=== PATIENT | female | born 1940 | race Caucasian/White ===

== ENCOUNTER → 2017-10-25 14:09 | Outpatient (POV) | payer MEDICARE, SELFPAY | PROVIDERS: Visit Provider Family Medicine | DX: Z00.00 Encounter for general adult medical examination without abnormal findings (principal) ==

== ENCOUNTER → 2021-12-06 13:17 | Outpatient (CLI) | payer MEDICARE, SELFPAY ==
--- NOTE | 2021-12-06 13:24 | XR_ITS ---
FINAL REPORT CLINICAL HISTORY: LT KNEE PAIN, NKI FINDINGS: LEFT KNEE: Three views of the left knee were obtained. There is no acute fracture or dislocation. Visualized joint spaces are normally aligned. There is no joint effusion. Soft tissues are unremarkable. IMPRESSION: No acute bony abnormality. Reviewed, Interpreted and Dictated by Roshan Abebe III, MD Transcribed by Kacey Garcia Authenticated by Roshan Abebe III, MD on 12/06/2021 03:50:51 PM [facility]
--- NOTE | 2021-12-06 13:24 | XR_ITS ---
FINAL REPORT CLINICAL HISTORY: LT HIP PAIN, NKI FINDINGS: LEFT HIP: Two views of the left hip and an AP view of the pelvis demonstrate no acute fracture or dislocation. There is mild degenerative change. No soft tissue abnormality is seen. IMPRESSION: Mild degenerative change. No acute bony abnormality. Reviewed, Interpreted and Dictated by Roshan Abebe III, MD Transcribed by Kacey Garcia Authenticated by Roshan Abebe III, MD on 12/06/2021 03:51:04 PM [facility]
--- NOTE | 2021-12-06 13:24 | XR_ITS ---
FINAL REPORT CLINICAL HISTORY: LOW BACK PAIN THAT RADIATES INTO LT LEG NKI FINDINGS: 5 views of the lumbar spine were obtained. There is no evidence of fracture or dislocation. The vertebral alignment is normal. There is [id number] degenerative change. There is mild anterolisthesis at L4-5. There is mild facet arthropathy in the lower lumbar spine. There are moderate vascular calcifications. IMPRESSION: No acute bony abnormality. Reviewed, Interpreted and Dictated by Roshan Abebe III, MD Transcribed by Kacey Garcia Authenticated by Roshan Abebe III, MD on 12/06/2021 03:50:55 PM [facility]
== END ==
PROVIDERS: PCP Family Medicine; Visit Provider Family Medicine
DX: M54.42 Lumbago with sciatica, left side (principal); M25.552 Pain in left hip; M25.562 Pain in left knee
CPT/HCPCS: 72110; 73502; 73562

== ENCOUNTER → 2022-05-21 10:47 | Outpatient (CLI) | payer MEDICARE, SELFPAY | PROVIDERS: Visit Provider Ophthalmology | DX: Z01.812 Encounter for preprocedural laboratory examination (principal); Z20.822 Contact with and (suspected) exposure to COVID-19 | CPT/HCPCS: C9803; U0003; U0005 ==

== ENCOUNTER → 2022-06-25 08:57 | Outpatient (CLI) | payer MEDICARE, SELFPAY | PROVIDERS: PCP Nurse Practitioner Family; Visit Provider Ophthalmology | DX: Z01.812 Encounter for preprocedural laboratory examination (principal); Z20.822 Contact with and (suspected) exposure to COVID-19; H25.011 Cortical age-related cataract, right eye | CPT/HCPCS: C9803; U0003; U0005 ==

== ENCOUNTER 2022-06-28 07:29 | Day surgery (SDC) | payer MEDICARE, SELFPAY ==
[2022-05-18 10:36] VITALS: BMI 23.6
[2022-06-23 10:38] VITALS: BMI 22.3
[2022-06-28 08:27] VITALS: BP 161/83; PULSE 81; RESP 18; TEMP 36.4; O2SAT 97
[2022-06-28 09:28] VITALS: BP 160/70; PULSE 77; RESP 16; O2SAT 100
[2022-06-28 09:33] VITALS: BP 136/73; PULSE 73; RESP 16; O2SAT 99
[2022-06-28 09:38] VITALS: BP 143/74; PULSE 66; RESP 16; O2SAT 100
[2022-06-28 09:43] VITALS: BP 149/79; PULSE 66; RESP 16; O2SAT 100
[2022-06-28 09:46] VITALS: BP 124/57; PULSE 73; RESP 16; TEMP 36.4; O2SAT 96
== END 2022-06-28 09:53 | disposition home or self-care (01) ==
LOC: OR 07:31
PROVIDERS: PCP Nurse Practitioner Family; Visit Provider Ophthalmology
DX: H26.9 Unspecified cataract (principal)
CPT/HCPCS: 66984; V2632

== ENCOUNTER → 2022-07-09 10:18 | Outpatient (CLI) | payer MEDICARE, SELFPAY | PROVIDERS: PCP Nurse Practitioner Family; Visit Provider Ophthalmology | DX: Z01.812 Encounter for preprocedural laboratory examination (principal); Z20.822 Contact with and (suspected) exposure to COVID-19 | CPT/HCPCS: C9803; U0003; U0005 ==

== ENCOUNTER 2022-07-12 07:47 | Day surgery (SDC) | payer MEDICARE, SELFPAY ==
[2022-07-07 12:07] VITALS: BMI 22.8
[2022-07-12] VITALS (7 sets, daily range): BP systolic 114–182; BP diastolic 66–89; PULSE 61–68; RESP 16–18; TEMP 36.4–36.6; O2SAT 97–99
== END 2022-07-12 10:06 | disposition home or self-care (01) ==
LOC: OR 07:50
PROVIDERS: PCP Nurse Practitioner Family; Visit Provider Ophthalmology
DX: H25.812 Combined forms of age-related cataract, left eye (principal)
CPT/HCPCS: 66982; V2632

== ENCOUNTER 2023-08-17 01:27 | Observation (INO) | payer MEDICARE, SELFPAY ==
[2023-08-17] VITALS (9 sets, daily range): BP systolic 75–134; BP diastolic 47–63; PULSE 73–91; RESP 16–20; TEMP 36.5–36.8; O2SAT 94–98; BMI 23.8; BMI 21.0
--- NOTE | 2023-08-17 01:33 | ECG_ITS ---
APPROVED REPORT Exam: Resting ECG HR:96 bpm ECG Measurements Heart Rate 96 AXES WA 179 P 50 QRSd 93 QRS 54 QT 341 T 73 QTc 395 Conclusion SINUS RHYTHM NONSPECIFIC T-WAVE ABNORMALITY BORDERLINE ECG UNCONFIRMED REPORT Electronically signed by : Cipriano De Los Santos MD 08/17/2023 20:57:56
--- NOTE | 2023-08-17 01:40 | HMH.EDGENADL ---
Discharge Plan Disposition Patient Disposition: Admitted Condition: Good Prescriptions Prescriptions: No Action donepezil 5 mg tablet 5 mg PO DAILY Patient Comments: TAKE ONE TABLET BY MOUTH AT BEDTIME valsartan 80 mg tablet 80 mg PO DAILY Patient Comments: TAKE ONE TABLET BY MOUTH EVERY DAY Referrals Follow up/Referrals: Chiquita Boone [Primary Care Provider] - See instructions Clinical Impressions Clinical Impression: Vomiting and diarrhea, Dehydration, Orthostatic hypotension Instructions Patient Instructions: DI for Diarrhea and Traveler's Diarrhea -- Adult, DI for Diarrhea and Traveler's Diarrhea -- Child, DI for Nausea -- Adult, DI for Nausea -- Child Discharge ED Provider: Farzana Desouza General Adult HPI General Chief complaint: Weakness Stated complaint: N/V Time Seen by Provider: 08/17/23 01:30 History of Present Illness HPI narrative: This patient is an 82-year-old female with a history of hypertension presented to the emergency department for evaluation with concern for nausea, vomiting, and diarrhea x2 days. The patient reports profuse vomiting and loose, watery, explosive diarrhea over the last 2 days. She has been unable to keep anything down. Emesis is nonbloody and nonbilious. She denies any associated pain, but overall is very weak. She arrives by EMS for evaluation of the symptoms. EMS reports that the patient had a syncopal episode upon standing at home to ambulate to the stretcher. They noted that afterward, she remained alert, oriented, and hemodynamically stable on cardiac telemetry. They initiated a bolus of IV fluids and give her IV Zofran as well. Related Data Home Medications Medication Instructions Recorded Confirmed donepezil 5 mg tablet 5 mg PO DAILY 08/17/23 08/17/23 valsartan 80 mg tablet 80 mg PO DAILY 08/17/23 08/17/23 Allergies Allergy/AdvReac Type Severity Reaction Status Date / Time propofol AdvReac Verified 07/12/22 08:40 [facility] Disclaimer: The information contained in this section may have been updated after the patient was seen, as this information can be updated by other users. Medical History Allergies Cancer History of cataract History of gastroesophageal reflux (GERD) Urinary frequency Surgical History History of esophagogastroduodenoscopy (EGD) Hx of cataract surgery Family History Mother Cancer Other Heart disease Social History Smoking Status: Unknown if ever smoked years smoked: 2 second hand exposure: No alcohol intake: never current occupational status: retired Travel in the last 8 weeks: None caffeine: No ROS Obtained: Yes All systems reviewed & no additional complaints except as documented Physical Exam General General appearance: alert Comment: Mildly ill-appearing Head Head exam: atraumatic and normocephalic Eye Eye exam: Present normal appearance, PERRL and EOMI ENT ENT exam: Present normal oropharynx, mucous membranes dry and normal external ear exam Neck Neck exam: Present normal inspection, full ROM and trachea midline; Absent tenderness Chest Chest inspection: Present normal inspection and symmetric chest wall rise; Absent tenderness Respiratory Respiratory exam: Present normal lung sounds bilaterally; Absent respiratory distress, wheezes, stridor or accessory muscle use Cardiovascular Cardiovascular exam: Present regular rate and normal rhythm Abdominal Exam Abdominal exam: Present soft and normal bowel sounds; Absent distention, tenderness, guarding, rebound or rigidity Extremities Exam Extremities exam: Present normal inspection, full ROM and normal capillary refill; Absent tenderness or edema Back Exam Back exam: Present normal inspection and full ROM;
[2023-08-17 01:42] LABS: Basophils % 0.1 % (0.1-2.0); Eosinophils # 0.1 K/mm3 (0.0-0.4); Eosinophils % 0.9 % (0.1-12.0); Hematocrit 36.3 % (37.0-47.0); Hemoglobin 12.5 g/dL (12.2-16.2); Lymphocytes # 0.6 K/mm3 (0.7-4.5); Lymphocytes % 7.5 % (10-50); Mean Corpuscular HGB Conc 34.4 g/dL (31.8-35.4); Mean Corpuscular Hemoglobin 29.7 pg (27.0-31.2); Mean Corpuscular Volume 86.5 fl (81-99); Mean Platelet Volume 7.5 fl (7.4-10.4); Monocytes # 0.3 K/mm3 (0.1-1.0); Monocytes % 3.8 % (1.7-9.3); Neutrophils # 7.1 K/mm3 (1.8-7.8); Neutrophils % 87.7 % (37.0-80.0); Platelet Count 222 K/mm3 (142-424); Red Cell Distribution Width 13.2 % (11.5-17.5); White Blood Count 8.1 K/mm3 (4.8-10.8)
[2023-08-17 01:48] LABS: MANUAL DIFFERENTIAL MANUAL DIFFERENTIAL (MANUAL DIFF)
[2023-08-17 01:49] LABS: Chloride 101 mmol/L (98-107)
[2023-08-17 01:50] LABS: Potassium 4.3 mmoL/L (3.5-5.1); Sodium 133 mmol/L (136-145)
--- NOTE | 2023-08-17 01:50 | PC.NURSE ---
FSBS 121
[2023-08-17 01:52] LABS: Alanine Aminotransferase 27 U/L (12-78); Alkaline Phosphatase 75 U/L (38-126); Anion Gap 8.3 mEq/L (5-15); Aspartate Amino Transferase 45 U/L (14-36); Bilirubin,Total 0.2 mg/dl (0.2-1.3); Blood Urea Nitrogen 16 mg/dl (7-17); Carbon Dioxide 28 mmol/L (22.0-30.0); Creatinine Clearance Estimated 36 mL/min (50-200); Estimated Glomerular Filt Rate 47 ml/min (>60); GFR (African American) 57 ML/MIN (>60); Lipase 103 U/L (23-300)
[2023-08-17 01:52] LABS: POC Glucose,Bedside 121 (70-110)
[2023-08-17 01:53] LABS: Albumin/Globulin Ratio 1.7 (1.1-1.8); Calcium 8.4 mg/dl (8.4-10.2); Globulin 2.4 g/dL (1.3-3.2); Glucose 135 mg/dl (74-100); Total Protein,Serum 6.4 g/dl (6.3-8.2)
[2023-08-17 02:02] LABS: Magnesium 1.6 mg/dl (1.6-2.3)
[2023-08-17 02:10] LABS: Lactic Acid 2.2 mmol/L (0.7-2.1)
[2023-08-17 02:11] LABS: Troponin I < 0.01 ng/ml (0.00-0.034)
--- NOTE | 2023-08-17 03:26 | PC.NURSE ---
Urine sample collected at this time. Pt ambulate around unit, tolerated well. Denies dizziness. Orthostatic BPs taken at this time as well. Lying- 110/53 Sitting- 120/53 Standing- 75/58 MD aware of BPs
--- NOTE | 2023-08-17 03:30 | EXP.HP ---
History of Present Illness *Admission Date: 08/17/23 *Reason for visit:: DEHYDRATION *History of present illness: 82 year old female presented to the ED for c/o N/V/ D for two days. PMHX of htn. Her ED workup revealed creatinine of 1.10, Na of 133, and lactic acid of 2.2. The ED physician reports orthostatic hypotension with systolic dropping from 120 to 70 with standing. Urine and stool panel pending for pt. The ED physician felt that it was not safe to send pt home due to orthostatic hypotension and pt living alone. She consulted hospital medicine for further medical management. I admitted the pt to the medical surgical floor. She will continue to receive IV hydration and have her labs repeated this morning. [facility] Disclaimer: The information contained in this section may have been updated after the patient was seen, as this information can be updated by other users. Medical History Allergies Cancer History of cataract History of gastroesophageal reflux (GERD) Urinary frequency Surgical History History of esophagogastroduodenoscopy (EGD) Hx of cataract surgery Family History Mother Cancer Other Heart disease Social History Smoking Status: Unknown if ever smoked years smoked: 2 second hand exposure: No alcohol intake: never current occupational status: retired Travel in the last 8 weeks: None caffeine: No Review of Systems Review of Systems Review of systems:: unable to obtain Meds Home Medications and Allergies Home Medications Medication Instructions Recorded Confirmed Type cefuroxime axetil 500 mg tablet 500 mg PO BID #10 tabs 08/17/23 Rx donepezil 5 mg tablet 10 mg PO DAILY 08/17/23 08/17/23 History valsartan 80 mg tablet 80 mg PO DAILY 08/17/23 08/17/23 History New Prescriptions to Start Prescriptions: cefuroxime axetil Liliane Langston Allergies Allergy/AdvReac Type Severity Reaction Status Date / Time propofol AdvReac Verified 07/12/22 08:40 Exam Data for Last 24 hours Vital signs and Labs for Last 24 Hours: Temp Pulse Resp BP Pulse Ox O2 Del Method 97.9 F 80 16 110/53 L 96 Room Air 08/17/23 01:27 08/17/23 02:30 08/17/23 01:27 08/17/23 03:29 08/17/23 02:30 08/17/23 01:27 Laboratory Results - last 24 hr 08/17/23 00:35: WBC 8.1, RBC 4.20, Hgb 12.5, Hct 36.3 L, MCV 86.5, MCH 29.7, MCHC 34.4, RDW 13.2, Plt Count 222, MPV 7.5, Neut % (Auto) 87.7 H, Lymph % (Auto) 7.5 L, [place] % (Auto) 3.8, Eos % (Auto) 0.9, Baso % (Auto) 0.1, Neut # (Auto) 7.1, Lymph # (Auto) 0.6 L, [place] # (Auto) 0.3, Eos # (Auto) 0.1, Baso # (Auto) 0.0, Sodium 133 L, Potassium 4.3, Chloride 101, Carbon Dioxide 28, Anion Gap 8.3, BUN 16, Creatinine 1.10 H, Estimated Creat Clear 36, Estimated GFR 47 L, Est GFR ( Amer) 57 L, Glucose 135 H, Lactate 2.2 H, Calcium 8.4, Magnesium 1.6, Total Bilirubin 0.2, AST 45 H, ALT 27, Alkaline Phosphatase 75, Troponin I < 0.01, Total Protein 6.4, Albumin 4.0, Globulin 2.4, Albumin/Globulin Ratio 1.7, Lipase 103 08/17/23 01:45: POC Glucose 121 H I & O for Last 24 hours: Intake & Output 08/14/23 08/15/23 08/16/23 08/17/23 23:59 23:59 23:59 23:59 Weight 58.967 kg Constitutional Constitutional: no acute distress *Routine HEENT Exam Head: Present normocephalic Eye: Present EOMI ENT: Present mucous membranes dry *Routine Neck Exam Neck: Present full ROM *Routine Respiratory Exam Respiratory: Present CTA bilaterally and symmetric chest movement *Routine Cardiovascular Exam Cardiovascular: Present RRR *Routine Abdominal Exam Abdominal: Present soft and normoactive bowel sounds; Absent tenderness *Routine Rectal Exam Rectal:: deferred *Routine Genitalia Exam Genitalia:: deferred *Routine Extremities Exam Ext
[2023-08-17 03:31] LABS: Microscopic, Urine URINE MICROSCOPIC (MICROSCOPIC)
[2023-08-17 03:58] LABS: Appearance,Urine CLOUDY (Clear); Bilirubin,Urine Negative (Negative); Blood, Urine TRACE-I (Negative); Color,Urine YELLOW (Yellow); Glucose,Urine (UA) Negative (Negative); Ketones,Urine Negative (Negative); Leukocyte Esterase,Urine 1+ (Negative); Nitrate,Urine POSITIVE (Negative); PH,Urine 6.5 (5.0-8.5); Protein,Urine 1+ (Negative); Urobilinogen,Urine 0.2 EU/dl (0.2)
[2023-08-17 03:59] LABS: Coronavirus 19, PCR Not Detected (NotDetected); Influenza A, PCR Not Detected (NotDetected); Influenza B, PCR Not Detected (NotDetected)
[2023-08-17 04:24] LABS: Bacteria,Urine 4+ /lpf
[2023-08-17 04:57] LABS: Reflex Lactic Add Lactic Reflex
--- NOTE | 2023-08-17 05:00 | PC.NURSE ---
Patient arrived to unit from ER @ 0435. Pt transported via wheelchair from the ER via staff with son by side. Patient alert and orient X4. Pt oriented to room and educated on the use of the call light, bed controller and tv controller with a voice of understanding. Pt denies any pain or SOB. Assessment to follow.
[2023-08-17 05:04] LABS: Lymphocytes % 4 % (10-50); Neutrophils % 96 % (42-76); Platelet Estimate Normal; RBC Morphology Normal; Total Cells Counted 100
[2023-08-17 06:28] LABS: Eosinophils % 0.2 % (0.1-12.0); Hematocrit 32.9 % (37.0-47.0); Hemoglobin 11.4 g/dL (12.2-16.2); Lymphocytes # 0.3 K/mm3 (0.7-4.5); Lymphocytes % 5.3 % (10-50); Mean Corpuscular HGB Conc 34.7 g/dL (31.8-35.4); Mean Corpuscular Volume 86.4 fl (81-99); Mean Platelet Volume 7.7 fl (7.4-10.4); Monocytes # 0.2 K/mm3 (0.1-1.0); Monocytes % 3.5 % (1.7-9.3); Neutrophils # 5.4 K/mm3 (1.8-7.8); Platelet Count 197 K/mm3 (142-424); Red Blood Count 3.81 M/mm3 (4.20-5.40); Red Cell Distribution Width 13.3 % (11.5-17.5); White Blood Count 5.9 K/mm3 (4.8-10.8)
[2023-08-17 06:31] LABS: Lactic Acid Follow Up (RFLX 1) 1.5 mmol/L (0.7-2.1)
[2023-08-17 06:45] LABS: Troponin I < 0.01 ng/ml (0.00-0.034)
[2023-08-17 07:17] LABS: Anion Gap 12.2 mEq/L (5-15); Blood Urea Nitrogen 13 mg/dl (7-17); Calcium 8.3 mg/dl (8.4-10.2); Carbon Dioxide 25 mmol/L (22.0-30.0); Chloride 100 mmol/L (98-107); Creatinine Clearance Estimated 35 mL/min (50-200); Estimated Glomerular Filt Rate 53 ml/min (>60); GFR (African American) 64 ML/MIN (>60); Glucose 101 mg/dl (74-100); Potassium 4.2 mmoL/L (3.5-5.1); Sodium 133 mmol/L (136-145)
--- NOTE | 2023-08-17 07:55 | HMH.PHAINT1 ---
Pharmacy Intervention Comments: Med reconciliation completed using external fill history
--- NOTE | 2023-08-17 07:59 | PC.NURSE ---
pt sitting up in bed stated feeling much better, no n/v/d. asked panda for a diet, VO for regular diet.
[2023-08-17 08:36] LABS: Troponin I < 0.01 ng/ml (0.00-0.034)
--- NOTE | 2023-08-17 09:43 | HMH.OTEV ---
OT Inpatient Evaluation Rehab OT IP Evaluation Start: 08/17/23 08:05 Freq: ONCE Status: Active Protocol: Document 08[facility]17/23 09:39 [facility] (Rec: 08/17/23 09:43 [facility] [id number]) Rehab OT IP Assessment Subjective History Pt oriented x 4 on arrival. Pt agreeable to engage in therapy evaluation. Pt admitted to [facility] on 08/17/23 due to dehydration. Prior to being in the hospital, pt lived at home alone. Normally , pt is independent with all ADLs and IADLs. Pt does not require any type of AE during functional transfers. Pt also still drives. Pt has a past medical history of: Allergies Cancer History of cataract History of gastroesophageal reflux (GERD) Urinary frequency Subjective I feel much better today. Objective Patient Orientation Person,Place,Birthday,Month Right Upper Extremity Gross ROM WFL Left Upper Extremity Gross ROM WFL Bed Mobility bed mobility-scooting,bed mobility - supine/sit,bed mobility - rolling Assist Level Supervision/Stand by Transfer Training Sit/Stand Transfer Assist Level Supervision/Stand by Chair Transfer Ability Supervision/Stand by Chair Transfer Technique Sit to/from Ambulatory Chair Transfer Assistive Devices None Feeding Ability Independent Lower Body Dressing Ability Standby Assistance Performing Toilet Hygiene Ability Standby Assistance Overall Commode/Toilet Transfer Ability Standby Assistance Commode/Toilet Transfer Technique Sit to/from Ambulatory Commode/Toilet Transfer Assistive Grab Bars Devices Rehab OT IP prob,goals,plan Problems Date of Evaluation: 08/17/23 Rehab Potential Rehab Potential Innapropriate for Skilled Therapy Discharge Plan OT Discharge Plan At this time, pt appears to be at her baseline with functional transfers and ADL independence. Pt can return home once medically stable per physician. Eval Complexity Eval Charge
--- NOTE | 2023-08-17 11:20 | HMH.PTEV ---
Physical Therapy Evaluation Rehab PT IP Evaluation Start: 08/17/23 08:05 Freq: ONCE Status: Active Protocol: Document 08/17/23 11:16 LILY (Rec: 08/17/23 11:20 [facility] [id number]) Subjective/History History History 82 yowf adm to [facility] on 08/17/23 due to dehydration. Prior to being in the hospital, pt lived at home alone. Normally , pt is independent with all ADLs and IADLs. Pt does not require any type of AE during functional transfers. Pt also still drives. Pt has a past medical history of: Allergies Cancer History of cataract History of gastroesophageal reflux (GERD) Urinary frequency Subjective Subjective Pt with no c/o this am, agrees to mobility assessment. New diagnosis of cancer in past 12 No months? Rehab PT IP Eval Objective Appearance Patient Behavior Appropriate Patient Orientation Person,Place,Time Difficulty following instructions none Speech Pattern Clear Ambulation Patient Able to Ambulate Yes Ambulation Observation IP General Gait Pattern Observation No Deviations/Normal Ambulation Distance (feet) 200 Ambulation Assistive Device None Ambulation Ability Independent Balance Ability to Arise Able, w/o using arms Sitting Balance Steady, safe Standing Balance Narrow stance w/o support Dynamic Sitting Balance Ability Good Dynamic Standing Balance Ability Good Transfers Bed Transfer Ability Independent Chair Transfer Ability Independent Sit to Stand Bed Transfer Ability Independent Sit to Stand Chair Transfer Ability Independent Rehab PT IP prob,goals,plan Problems Date of Evaluation: 08/17/23 Discharge Plan PT Discharge Plan Pt is appropriate to return home once medically stable for d/c. No current inpatient therapy needs. Eval Complexity Eval Charge Codes 17900 - High Complexity PHYSICIAN CERTIFICATION: I certify the specified therapy services for Ashleigh Goodwin are required, authorized, and reviewed every 30 days.
--- NOTE | 2023-08-17 13:04 | EXP.DC.SUM ---
General Admission date:: 08/17/23 Discharge date: 08/17/23 HPI HPI HPI: 82 year old female presented to the ED for c/o N/V/ D for two days. PMHX of htn. Her ED workup revealed creatinine of 1.10, Na of 133, and lactic acid of 2.2. The ED physician reports orthostatic hypotension with systolic dropping from 120 to 70 with standing. Urine and stool panel pending for pt. The ED physician felt that it was not safe to send pt home due to orthostatic hypotension and pt living alone. She consulted hospital medicine for further medical management. I admitted the pt to the medical surgical floor. She will continue to receive IV hydration and have her labs repeated this morning. Hospital Course Hospital Course Hospital Course: Patient was seen and evaluated at the bedside on the day of discharge. Patient is stable for discharge. Patient wishes to be discharged. All patient questions were answered and patient was given time to ask questions. Patient was discharged in stable condition. 82 year old female presented to the ED for c/o N/V/ D for two days. PMHX of htn. Her ED workup revealed creatinine of 1.10, Na of 133, and lactic acid of 2.2. The ED physician reports orthostatic hypotension with systolic dropping from 120 to 70 with standing. Urine and stool panel pending for pt. The ED physician felt that it was not safe to send pt home due to orthostatic hypotension and pt living alone. She consulted hospital medicine for further medical management. I admitted the pt to the medical surgical floor. She will continue to receive IV hydration and have her labs repeated this morning. Pt states she no longer feels sick. She reports no diarrhea since yesterday. She does reports nasuea on the way to ED. Instructed pt that we would advance diet slowly. DEHYDRATION - improved ORTHOSTATIC HYPOTENSION -improved -Stool and urine pending -> please obtain -Bed alarm, reattempted to assess orthostatic pressures prior to discharge -no leukocytosis. Elevated Lactic of 2.2 -> continue to trend -advance diet as tolerated DAVIDA - resolved HYPONATREMIA - resolved -creatinine 1.10 and Na 133 -> I ordered repeat for this A.M -recieved 2L in ED -> continue hydration with LR @ 125 mL/hr HTN -holding home med in setting of davida FULL CODE NPO DVT: SUB Q HEPARIN Exam Data for Last 24 hours Vital signs and Labs for Last 24 Hours: Temp Pulse Resp BP Pulse Ox O2 Del Method 98.3 F 73 20 131/63 98 Room Air 08/17/23 08:00 08/17/23 12:30 08/17/23 12:30 08/17/23 12:30 08/17/23 12:30 08/17/23 12:30 Laboratory Results - last 24 hr 08/17/23 00:35: WBC 8.1, RBC 4.20, Hgb 12.5, Hct 36.3 L, MCV 86.5, MCH 29.7, MCHC 34.4, RDW 13.2, Plt Count 222, MPV 7.5, Neut % (Auto) 87.7 H, Lymph % (Auto) 7.5 L, [place] % (Auto) 3.8, Eos % (Auto) 0.9, Baso % (Auto) 0.1, Neut # (Auto) 7.1, Lymph # (Auto) 0.6 L, [place] # (Auto) 0.3, Eos # (Auto) 0.1, Baso # (Auto) 0.0, Total Counted 100, Neutrophils % (Manual) 96 H, Lymphocytes % (Manual) 4 L, Platelet Estimate Normal, RBC Morphology Normal, Sodium 133 L, Potassium 4.3, Chloride 101, Carbon Dioxide 28, Anion Gap 8.3, BUN 16, Creatinine 1.10 H, Estimated Creat Clear 36, Estimated GFR 47 L, Est GFR ( Amer) 57 L, Glucose 135 H, Lactate 2.2 H, Calcium 8.4, Magnesium 1.6, Total Bilirubin 0.2, AST 45 H, ALT 27, Alkaline Phosphatase 75, Troponin I < 0.01, Total Protein 6.4, Albumin 4.0, Globulin 2.4, Albumin/Globulin Ratio 1.7, Lipase 103 08/17/23 01:45: POC Glucose 121 H 08/17/23 03:00: Urine Color Yellow, Urine Appearance Cloudy, Urine pH 6.5, Ur Specific [place] 1.020, Urine Protein 1+, Urine Glucose (UA) Negative, Urine Ketones Negative, Urine Blood Trace-i, Urine Nitrate Positive, Urine Bilirubin Negative, Urine Urobilinogen 0.2, Ur Leukocyte Esterase 1+ A, Urine WBC 3-5, Urine Bacteria 4+ 08/17/23 03:41: SARS-CoV-2 (PCR) Not detected, Influenza A Untype (PCR) Not detected, Influenza Type B (PCR) Not detected
--- NOTE | 2023-08-17 13:57 | PC.NURSE ---
waiting for meds to beds. called for update, meds are ready just unable to bring to bedside at this time.
--- NOTE | 2023-08-18 16:21 | CARE MANAGER ---
Called and spoke with patient regarding recent discharge. Patient states she is feeling well. She called her PCP today and had her ABX changed from Cefuroxime to Cephalexin 500mg due to inability to swallow the Cefuroxime. Patient is aware of scheduled f/u appts.
--- NOTE | 2023-08-21 09:25 | PC.NURSE ---
urine culture results shows escherichia coli, pt d/c on cefuroxime 500 po bid for 5 days. MD Desouza notified, no further action at this time.
== END 2023-08-17 14:19 | disposition home or self-care (01) ==
LOC: ER 03:21 → 2ND 03:30
PROVIDERS: Nurse Practitioner Critical Care Medicine; Admitting Provider Internal Medicine; Emergency Provider Emergency Medicine; PCP Nurse Practitioner Family; Visit Provider Internal Medicine
DX: E86.0 Dehydration (principal); R11.10 Vomiting, unspecified; R19.7 Diarrhea, unspecified; I95.1 Orthostatic hypotension; N17.9 Acute kidney failure, unspecified; I10 Essential (primary) hypertension; E87.1 Hypo-osmolality and hyponatremia; Z79.899 Other long term (current) drug therapy
CPT/HCPCS: 36415; 80048; 80053; 81001; 82962; 83605; 83690; 83735; 84484; 85007; 85025; 87086; 87636; 93005; 97163; 97165; 99285; G0378

== ENCOUNTER 2024-04-21 17:23 | Emergency (ER) | payer MEDICARE, SELFPAY ==
[2024-04-21] VITALS (11 sets, daily range): BP systolic 120–173; BP diastolic 57–83; PULSE 69–94; RESP 13–18; TEMP 37.2–37.9; O2SAT 95–98; BMI 21.9
--- NOTE | 2024-04-21 17:41 | ED_ITS ---
<Statement entered by Shimon Sanchez MD - 04/21/24 23:54> I was consulted by the GABE, and we discussed the complexity of the problems being addressed. I approved the treatment and management plan for this patient's care in the emergency department, thus performing a substantive portion of the medical decision making. Shimon Sanchez MD Discharge Plan Disposition Patient Disposition: Home, Self-Care Condition: Good Chief Complaint: Fall Prescriptions Prescriptions: No Action donepezil 5 mg tablet 10 mg PO DAILY Patient Comments: TAKE ONE TABLET BY MOUTH AT BEDTIME valsartan 80 mg tablet 80 mg PO DAILY Patient Comments: TAKE ONE TABLET BY MOUTH EVERY DAY cefuroxime axetil 500 mg tablet 500 mg PO BID Qty: 10 0RF Activity Restrictions/Add. Instructions Additional Instructions/Restrictions: Please call in the morning and make an appointment for urgent follow-up with cardiology for further evaluation and care. If you have any worsening of your signs and symptoms please return to the emergency department. Clinical Impressions Clinical Impression: Syncope and collapse Instructions Patient Instructions: DI for Syncope in Adults (Fainting) Discharge ED Provider: Shimon Sanchez General Adult HPI <SAUL Gallegos - Last Filed: 04/21/24 21:27> General Chief complaint: Fall Stated complaint: fall Time Seen by Provider: 04/21/24 17:40 Mode of Arrival: EMS Source of Information: Patient and EMS Limitations: No Limitations Description of Symptoms (Recalled from ER Triage Doc. by RN): pt presents to ED with c/o fall and being on the floor for several hours. pt reports that the last thing she remembers is going to the restroom. she awoke this am and attempted to call her sister for help with getting off the floor. pt reports that her sister called other family members and were unsuccessful with getting her off the floor. ambulance called and pt brought to ed for evaluation. pt denies any pain at this time History of Present Illness HPI narrative: Patient presents after a fall from home. Patient states that she went to bed around 9 PM which was her last known well. She got up at some point in the night to go to the bathroom mated about 30 steps and had a syncopal event. After she awoke she was at the bottom of a set of 2 stairs on her back. Patient states that she was unable to get her legs to support her and could not get off the floor. She cannot move anywhere in the house. She laid there until well into the afternoon at which point she was able to reach a book to dislodge the telephone where she could reach it on the floor and called her daughter. Other than back discomfort patient denies any headache focal neurologic difficulties and was able to ambulate with assistance after help arrives. Her Glascow coma score is currently 15 she denies chest pain shortness of breath fever chills hemoptysis hematochezia melena nausea vomiting diarrhea. Patient lives alone and is independent of all of her activities of daily living normally and ambulates without assistance at baseline. Related Data Home Medications Medication Instructions Recorded Confirmed donepezil 5 mg tablet 10 mg PO DAILY 08/17/23 08/17/23 valsartan 80 mg tablet 80 mg PO DAILY 08/17/23 08/17/23 Previous Rx's Medication Instructions Recorded cefuroxime axetil 500 mg tablet 500 mg PO BID #10 tabs 08/17/23 Allergies Allergy/AdvReac Type Severity Reaction Status Date / Time propofol AdvReac Verified 07/12/22 08:40 PFSH <SAUL Gallegos - Last Filed: 04/21/24 21:27> PFS Disclaimer: The information contained in this section may have been updated after the patient was seen, as this information can be updated by other users. Medical History Allergies Cancer History of cataract History of gastroesophageal reflux (GERD) Urinary frequency Surgical History History of esophagogastroduodenoscopy (EGD) Hx of cataract surgery Family History Mother Cancer Other Heart disease Social History Smoking Status: Former smoker years smoked: 2 second hand exposure: No alcohol intake: never current occupational status: retired Travel in the last 8 weeks: None caffeine: No <SAUL Gallegos - Last Filed: 04/21/24 21:27> ROS Obtained: Yes Systems reviewed as appropriate & no additional complaints except as documented Physical Exam <SAUL Gallegos - Last Filed: 04/21/24 21:27> General General appearance: alert and in no apparent distress Head Head exam: atraumatic and normal inspection Eye Eye exam: Present normal appearance, PERRL and EOMI ENT ENT exam: Present normal exam, normal oropharynx and mucous membranes moist Neck Neck exam: Present normal inspection, full ROM and lymphadenopathy; Absent tenderness Chest Chest inspection: Present normal inspection and symmetric chest wall rise; Absent tenderness Respiratory Respiratory exam: Present normal lung sounds bilaterally; Absent respiratory distress Cardiovascular Cardiovascular exam: Present regular rate, normal rhythm, normal heart sounds, +S1 and +S2 Abdominal Exam Abdominal exam: Present soft and normal bowel sounds; Absent tenderness Extremities Exam Extremities exam: Present normal inspection and full ROM; Absent tenderness Back Exam Back exam: Present normal inspection and tenderness; Absent full ROM Neurological Exam Neurological exam: Present alert and oriented X3 Skin Skin exam: Present warm, dry and normal color Medical Decision Making <SAUL Gallegos - Last Filed: 04/21/24 21:27> Medical Records Medical records reviewed: Yes I reviewed the patient's medical records. Dani Inquiry Pt receiving controlled substance: No Vital Signs: 04/21/24 17:23 04/21/24 17:30 04/21/24 18:00 Temperature 100.2 F H Temperature Source Oral Pulse Rate 88 85 Pulse Rate [Left Radial] 94 H Respiratory Rate 13 Blood Pressure 144/80 H 161/65 H Blood Pressure [Right Arm] 144/80 H Blood Pressure Mean [Right Arm] 101 02 Sat by Pulse Oximetry 97 97 96 Oxygen Delivery Method Room Air Room Air 04/21/24 18:30 04/21/24 18:52 04/21/24 19:00 Temperature Temperature Source Pulse Rate 83 89 69 Pulse Rate [Left Radial] Respiratory Rate Blood Pressure 161/71 H 173/77 H 167/69 H Blood Pressure [Right Arm] Blood Pressure Mean [Right Arm] 02 Sat by Pulse Oximetry 97 97 96 Oxygen Delivery Method Room Air Room Air Room Air Lab Data Lab results reviewed: Yes I reviewed the patient's lab results. Lab Results 04/21/24 17:32: WBC 6.8, RBC 4.42, Hgb 14.3, Hct 39.3, MCV 88.9, MCH 32.2 H, M CHC 36.2 H, RDW 13.7, Plt Count 254, MPV 7.7, Neut % (Auto) 81.7 H, Lymph % (Auto) 6.7 L, Motley % (Auto) 10.0 H, Eos % (Auto) 0.1, Baso % (Auto) 1.6, Neut # (Auto) 5.6, Lymph # (Auto) 0.5 L, Motley # (Auto) 0.7, Eos # (Auto) 0.0, Baso # (Auto) 0.1, Sodium 134 L, Potassium 4.2, Chloride 101, Carbon Dioxide 25, Anion Gap 12.2, BUN 15, Creatinine 1.00, Estimated Creat Clear 36, Estimated GFR 53 L, Est GFR ( Amer) 64, Glucose 107 H, Lactate 1.4, Calcium 9.6, Magnesium 1.8, Total Bilirubin 0.5, AST 52 H, ALT 29, Alkaline Phosphatase 83, Total Creatine Kinase 412 H, Troponin I < 0.01, Total Protein 7.5, Albumin 4.4, Globulin 3.1, Albumin/Globulin Ratio 1.4 04/21/24 17:32 04/21/24 17:32 Orders (Tests/Meds): ED MEDICATIONS Discontinued Medications Generic Name Dose Route Start Last Admin Trade Name Freq PRN Reason Stop Dose Admin Acetaminophen 1,000 mg 04/21/24 18:07 04/21/24 19:02 Acetaminophen 1,000mg/100ml Vial IV 04/21/24 18:08 1,000 mg ONCE ONE Administration Sodium Chloride 1,000 mls @ 999 mls/hr 04/21/24 18:02 04/21/24 19:02 Sod Chlor 0.9% 1000ml Bag IV 04/21/24 19:02 999 mls/hr .Q1H1M ONE Administration ORDERS Category Date Time Status CT bony pelvis Stat Cat Scan 04/21/24 18:[address] cervical spine wo con Stat Cat Scan 04/21/24 18:[address] chest wo con Stat Cat Scan 04/21/24 18:[address] head/brain wo con Stat Cat Scan 04/21/24 18:[address] lumbar spine wo con Stat Cat Scan 04/21/24 18:[address] thoracic spine wo con Stat Cat Scan 04/21/24 18:09 Completed CBC w/Auto Diff [Complete Blood Count Auto Diff] Stat Lab 04/21/24 17:32 Completed CK [Creatine Kinase] Stat Lab 04/21/24 17:32 Completed CMP [Comprehensive Metabolic Panel] Stat Lab 04/21/24 17:32 Completed Lactic Acid Stat Lab 04/21/24 17:32 Completed Magnesium Stat Lab 04/21/24 17:32 Completed Trop I [Troponin I] Stat Lab 04/21/24 17:32 Completed Troponin I Q3H Lab 04/21/24 21:15 Ordered Troponin I Q3H Lab 04/22/24 00:15 Ordered UA [Urinalysis and Microscopic] Stat Lab 04/21/24 18:05 Ordered HEART Score History (anamnesis): Slightly suspicious ECG: Normal Age: >65 years Risk factors: 1-2 risk factors Troponin: </= normal limit HEART Score: 3 Medical Decision Narrative: In summary patient is a 83-year-old female who presents to the emergency department for evaluation of syncope and collapse. Patient is hemodynamically stable upon arrival, afebrile. Physical exam is remarkable for tenderness to palpation along the paraspinous musculature but no midline vertebral tenderness, no cervical spine tenderness, patient has full range of motion of the cervical spine without pain, patient currently denies any headache fever chills shortness of breath and breath sounds are clear and equal bilaterally to the bases. Patient is normotensive at the time of my exam EKG shows sinus rhythm on the bedside monitor patient has no focal neurologic deficits and has full range of motion all 4 extremities.. Differential diagnosis includes vasovagal syncope versus cardiac arrhythmia versus ACS versus stroke etc. Initial workup will be conducted with hematologic labs CT scans and plain film x-rays urinalysis. Initial interventions include crystalloid bolus Tylenol. Initial workup reviewed by me and remarkably patient's hematologic labs are nonactionable including normal creatinine patient has only slight elevation in her CK and my informal interpretation of her imaging shows no acute fracture. Upon repeat evaluation patient is able to ambulate unassisted now and is tolerant of p.o. fluids. Given this I had interactive discussion with the patient and her family members at her bedside and via patient directed discharge patient elected to go home with her son staying with her tonight and she will follow-up immediately with cardiology for further workup. <Shimon Sanchez MD - Last Filed: 04/21/24 18:41> Vital Signs: 04/21/24 17:23 04/21/24 17:30 04/21/24 18:00 Temperature 100.2 F H Temperature Source Oral Pulse Rate 88 85 Pulse Rate [Left Radial] 94 H Respiratory Rate 13 Blood Pressure 144/80 H 161/65 H Blood Pressure [Right Arm] 144/80 H Blood Pressure Mean [Right Arm] 101 02 Sat by Pulse Oximetry 97 97 96 Oxygen Delivery Method Room Air Room Air 04/21/24 18:30 04/21/24 18:52 04/21/24 19:00 Temperature Temperature Source Pulse Rate 83 89 69 Pulse Rate [Left Radial] Respiratory Rate Blood Pressure 161/71 H 173/77 H 167/69 H Blood Pressure [Right Arm] Blood Pressure Mean [Right Arm] 02 Sat by Pulse Oximetry 97 97 96 Oxygen Delivery Method Room Air Room Air Room Air Lab Data Lab Results 04/21/24 17:32: WBC 6.8, RBC 4.42, Hgb 14.3, Hct 39.3, MCV 88.9, MCH 32.2 H, M CHC 36.2 H, RDW 13.7, Plt Count 254, MPV 7.7, Neut % (Auto) 81.7 H, Lymph % (Auto) 6.7 L, Motley % (Auto) 10.0 H, Eos % (Auto) 0.1, Baso % (Auto) 1.6, Neut # (Auto) 5.6, Lymph # (Auto) 0.5 L, Motley # (Auto) 0.7, Eos # (Auto) 0.0, Baso # (Auto) 0.1, Sodium 134 L, Potassium 4.2, Chloride 101, Carbon Dioxide 25, Anion Gap 12.2, BUN 15, Creatinine 1.00, Estimated Creat Clear 36, Estimated GFR 53 L, Est GFR ( Amer) 64, Glucose 107 H, Lactate 1.4, Calcium 9.6, Magnesium 1.8, Total Bilirubin 0.5, AST 52 H, ALT 29, Alkaline Phosphatase 83, Total Creatine Kinase 412 H, Troponin I < 0.01, Total Protein 7.5, Albumin 4.4, Globulin 3.1, Albumin/Globulin Ratio 1.4 Orders (Tests/Meds): ED MEDICATIONS Discontinued Medications Generic Name Dose Route Start Last Admin Trade Name Freq PRN Reason Stop Dose Admin Acetaminophen 1,000 mg 04/21/24 18:07 04/21/24 19:02 Acetaminophen 1,000mg/100ml Vial IV 04/21/24 18:08 1,000 mg ONCE ONE Administration Sodium Chloride 1,000 mls @ 999 mls/hr 04/21/24 18:02 04/21/24 19:02 Sod Chlor 0.9% 1000ml Bag IV 04/21/24 19:02 999 mls/hr .Q1H1M ONE Administration ORDERS Category Date Time Status CT bony pelvis Stat Cat Scan 04/21/24 18:[address] cervical spine wo con Stat Cat Scan 04/21/24 18:[address] chest wo con Stat Cat Scan 04/21/24 18:[address] head/brain wo con Stat Cat Scan 04/21/24 18:[address] lumbar spine wo con Stat Cat Scan 04/21/24 18:[address] thoracic spine wo con Stat Cat Scan 04/21/24 18:09 Completed CBC w/Auto Diff [Complete Blood Count Auto Diff] Stat Lab 04/21/24 17:32 Completed CK [Creatine Kinase] Stat Lab 04/21/24 17:32 Completed CMP [Comprehensive Metabolic Panel] Stat Lab 04/21/24 17:32 Completed Lactic Acid Stat Lab 04/21/24 17:32 Completed Magnesium Stat Lab 04/21/24 17:32 Completed Trop I [Troponin I] Stat Lab 04/21/24 17:32 Completed Troponin I Q3H Lab 04/21/24 21:15 Ordered Troponin I Q3H Lab 04/22/24 00:15 Ordered UA [Urinalysis and Microscopic] Stat Lab 04/21/24 18:05 Ordered ECG Data Tracing #1: Independently interpreted by me rate is 83, rhythm is regular, axis is normal, no ST elevation in anatomical contiguous leads, QTc 385. Critical Care <SAUL Gallegos - Last Filed: 04/21/24 21:27> Critical Care Time Critical Care Time: No
--- NOTE | 2024-04-21 18:02 | ECG_ITS ---
APPROVED REPORT Exam: Resting ECG HR:83 bpm ECG Measurements Heart Rate 83 AXES ID 162 P 44 QRSd 82 QRS 39 QT 345 T 60 QTc 385 Conclusion SINUS RHYTHM NORMAL ECG UNCONFIRMED REPORT Electronically signed by : MELANIE FLOOD, 04/22/2024 00:36:35
--- NOTE | 2024-04-21 18:07 | CT_ITS ---
PROCEDURE INFORMATION: Exam: CT Chest Without Contrast; Diagnostic Exam date and time: 04/21/2024 6:48 PM Age: 83 years old Clinical indication: Injury or trauma; Fall; Blunt trauma (contusions or hematomas); Additional info: Syncope and collapse TECHNIQUE: Imaging protocol: Diagnostic computed tomography of the chest without contrast. Radiation optimization: All CT scans at this facility use at least one of these dose optimization techniques: automated exposure control; mA and/or kV adjustment per patient size (includes targeted exams where dose is matched to clinical indication); or iterative reconstruction. COMPARISON: CT THORACIC SPINE WO CON 04/21/2024 6:41 PM FINDINGS: Lungs: The lungs are clear. Pleural spaces: Unremarkable. No pneumothorax. No pleural effusion. Heart: Unremarkable. No cardiomegaly. No pericardial effusion. Coronary arteries: Three-vessel coronary artery calcifications. Lymph nodes: No mediastinal or hilar adenopathy. Vasculature: Minimal ectasia of the supravalvular ascending aorta maximal transverse dimension 3.5 cm. Diaphragm: Tiny hiatal hernia. Liver: Simple cyst right hepatic lobe measures 3.2 cm. Bones/joints: Unremarkable. No acute fracture. Soft tissues: Chest wall subcutaneous tissues and musculature appear unremarkable. IMPRESSION: 1. The lungs are clear. 2. Minimal ectasia of the supravalvular ascending aorta maximal transverse dimension 3.5 cm. 3. Tiny hiatal hernia. 4. No acute abnormalities are identified.
--- NOTE | 2024-04-21 18:09 | CT_ITS ---
PROCEDURE INFORMATION: Exam: CT Cervical Spine Without Contrast Exam date and time: 04/21/2024 6:39 PM Age: 83 years old Clinical indication: Injury or trauma; Fall; Blunt trauma; Additional info: Trauma, critical injury suspected TECHNIQUE: Imaging protocol: Computed tomography of the cervical spine without contrast. Radiation optimization: All CT scans at this facility use at least one of these dose optimization techniques: automated exposure control; mA and/or kV adjustment per patient size (includes targeted exams where dose is matched to clinical indication); or iterative reconstruction. COMPARISON: CT CERVICAL SPINE WO CON 04/21/2024 6:39 PM FINDINGS: Bones: Cervical vertebrae normal in height. No acute fracture. Minimal rightward curvature. Grade 1 anterolisthesis C3 on C4, C4 on C5 and C7 on T1. Minimal retrolisthesis C5 on C6. Maintained craniocervical junction. Multilevel degenerative changes. Varying degrees of neural foraminal narrowing. No severe spinal canal stenosis. Lungs: Biapical pleural-parenchymal scarring. Vasculature: Bilateral carotid artery calcifications. Soft tissues: Unremarkable. IMPRESSION: No acute osseous findings.
--- NOTE | 2024-04-21 18:09 | CT_ITS ---
PROCEDURE INFORMATION: Exam: CT Head Without Contrast Exam date and time: 04/21/2024 6:36 PM Age: 83 years old Clinical indication: Injury or trauma; Fall; Blunt trauma (contusions or hematomas); Additional info: Trauma, critical injury suspected TECHNIQUE: Imaging protocol: Computed tomography of the head without contrast. Radiation optimization: All CT scans at this facility use at least one of these dose optimization techniques: automated exposure control; mA and/or kV adjustment per patient size (includes targeted exams where dose is matched to clinical indication); or iterative reconstruction. COMPARISON: No relevant prior studies available. FINDINGS: Brain: No acute intracranial hemorrhage, midline shift or mass effect. Diffuse brain parenchymal volume loss. Moderate hypodensities within the cerebral white matter most consistent with chronic small-vessel ischemic changes. Cerebral ventricles: Ex vacuo dilatation of the ventricles. Paranasal sinuses: Left sphenoid sinus mucous retention cyst. Mild bilateral anterior ethmoid air cell mucosal thickening. Mastoid air cells: Visualized mastoid air cells are well aerated. Bones: Unremarkable. No acute fracture. Soft tissues: Unremarkable. IMPRESSION: No acute intracranial findings.
--- NOTE | 2024-04-21 18:09 | CT_ITS ---
PROCEDURE INFORMATION: Exam: CT Pelvis Without Contrast; Skeletal Exam date and time: 04/21/2024 6:46 PM Age: 83 years old Clinical indication: Injury or trauma; Fall; Blunt trauma (contusions or hematomas); Bilateral; Pelvic region; Additional info: Trauma, critical injury suspected TECHNIQUE: Imaging protocol: Computed tomography of the pelvis without contrast. Exam focused on the skeleton. Radiation optimization: All CT scans at this facility use at least one of these dose optimization techniques: automated exposure control; mA and/or kV adjustment per patient size (includes targeted exams where dose is matched to clinical indication); or iterative reconstruction. COMPARISON: CR XR HIP LT 2-3V W/PELVIS 12/06/2021 1:25 PM FINDINGS: Intestine: There are changes of diverticulosis without evidence for diverticulitis noted within the sigmoid colon.. Bones/joints: Unremarkable. No acute fracture. No dislocation. Soft tissues: Unremarkable. IMPRESSION: Diverticulosis without CT evidence to suggest diverticulitis. No fractures.
--- NOTE | 2024-04-21 18:09 | CT_ITS ---
PROCEDURE INFORMATION: Exam: CT Thoracic Spine Without Contrast Exam date and time: 04/21/2024 6:41 PM Age: 83 years old Clinical indication: Injury or trauma; Fall; Blunt trauma (contusions or hematomas); Additional info: Trauma, critical injury suspected TECHNIQUE: Imaging protocol: Computed tomography of the thoracic spine without contrast. Radiation optimization: All CT scans at this facility use at least one of these dose optimization techniques: automated exposure control; mA and/or kV adjustment per patient size (includes targeted exams where dose is matched to clinical indication); or iterative reconstruction. COMPARISON: CT THORACIC SPINE WO CON 04/21/2024 6:41 PM FINDINGS: Bones/joints: Scattered moderate degenerative disc space loss noted. Soft tissues: Unremarkable. IMPRESSION: Unremarkable CT Spine.
--- NOTE | 2024-04-21 18:09 | CT_ITS ---
PROCEDURE INFORMATION: Exam: CT Lumbar Spine Without Contrast Exam date and time: 04/21/2024 6:44 PM Age: 83 years old Clinical indication: Injury or trauma; Fall; Blunt trauma (contusions or hematomas); Additional info: Trauma, critical injury suspected TECHNIQUE: Imaging protocol: Computed tomography of the lumbar spine without contrast. Radiation optimization: All CT scans at this facility use at least one of these dose optimization techniques: automated exposure control; mA and/or kV adjustment per patient size (includes targeted exams where dose is matched to clinical indication); or iterative reconstruction. COMPARISON: CR XR LUMBAR SPINE MIN 4V 12/06/2021 1:25 PM FINDINGS: Bones/joints: 4 mm of anterolisthesis at L4-L5. 4 mm of degenerative anterolisthesis L5-S1. No acute fracture. Severe bilateral facet arthropathy at L5-S1 and moderate to severe at L4-L5. Stomach and bowel: Partially visualized sigmoid diverticulosis. Soft tissues: Unremarkable. IMPRESSION: 1. No evidence for acute fracture. 2. Degenerative changes as discussed above.
[2024-04-21 18:27] LABS: Magnesium 1.8 mg/dl (1.6-2.3)
[2024-04-21 18:28] LABS: Alanine Aminotransferase 29 U/L (12-78); Albumin Level 4.4 g/dl (3.5-5.0); Albumin/Globulin Ratio 1.4 (1.1-1.8); Alkaline Phosphatase 83 U/L (38-126); Anion Gap 12.2 mEq/L (5-15); Aspartate Amino Transferase 52 U/L (14-36); Bilirubin,Total 0.5 mg/dl (0.2-1.3); Blood Urea Nitrogen 15 mg/dl (7-17); Calcium 9.6 mg/dl (8.4-10.2); Carbon Dioxide 25 mmol/L (22.0-30.0); Chloride 101 mmol/L (98-107); Creatine Kinase 412 U/L (30-135); Creatinine Clearance Estimated 36 mL/min (50-200); Estimated Glomerular Filt Rate 53 ml/min (>60); GFR (African American) 64 ML/MIN (>60); Globulin 3.1 g/dL (1.3-3.2); Glucose 107 mg/dl (74-100); Potassium 4.2 mmoL/L (3.5-5.1); Sodium 134 mmol/L (136-145); Total Protein,Serum 7.5 g/dl (6.3-8.2)
[2024-04-21 18:29] LABS: Lactic Acid 1.4 mmol/L (0.7-2.1)
[2024-04-21 18:36] LABS: Basophils # 0.1 K/mm3 (0-0.2); Basophils % 1.6 % (0.1-2.0); Eosinophils % 0.1 % (0.1-12.0); Hematocrit 39.3 % (37.0-47.0); Hemoglobin 14.3 g/dL (12.2-16.2); Lymphocytes # 0.5 K/mm3 (0.7-4.5); Lymphocytes % 6.7 % (10-50); Mean Corpuscular HGB Conc 36.2 g/dL (31.8-35.4); Mean Corpuscular Hemoglobin 32.2 pg (27.0-31.2); Mean Corpuscular Volume 88.9 fl (81-99); Mean Platelet Volume 7.7 fl (7.4-10.4); Monocytes # 0.7 K/mm3 (0.1-1.0); Neutrophils # 5.6 K/mm3 (1.8-7.8); Neutrophils % 81.7 % (37.0-80.0); Platelet Count 254 K/mm3 (142-424); Red Blood Count 4.42 M/mm3 (4.20-5.40); Red Cell Distribution Width 13.7 % (11.5-17.5); White Blood Count 6.8 K/mm3 (4.8-10.8)
[2024-04-21 18:41] LABS: Troponin I < 0.01 ng/ml (0.00-0.034)
[2024-04-21] MEDS: 0.9 % SODIUM CHLORIDE 1000ML 1,000 ML 999 ML IV (19:02)
[2024-04-21] MEDS: ACETAMINOPHEN 1,000MG/100ML VIAL 1000 MG IV (19:02)
--- NOTE | 2024-04-21 20:13 | PC.NURSE ---
René Marsh PA-C at bedside
== END 2024-04-21 22:22 | disposition home or self-care (01) ==
PROVIDERS: Physician Assistant; Emergency Provider Emergency Medicine; PCP Nurse Practitioner Family
DX: R55 Syncope and collapse (principal); W10.8XXA Fall (on) (from) other stairs and steps, initial encounter; M54.6 Pain in thoracic spine
CPT/HCPCS: 70450; 71250; 72125; 72128; 72131; 72192; 80053; 82550; 83605; 83735; 84484; 85025; 93005; 96361; 96374; 99285; J0131

== ENCOUNTER 2024-10-01 13:53 | Outpatient (CLI) | payer MEDICARE, SELFPAY ==
--- NOTE | 2024-10-01 13:56 | CT_ITS ---
FINAL REPORT TECHNIQUE: Thin section axial images were obtained from skull base to vertex without contrast. Coronal reconstruction images were obtained from the axial data. Exam was performed using dose reduction technique. CLINICAL HISTORY: AMNESIA COMPARISON: 04/21/2024 FINDINGS: Mild atrophy is noted. There are changes of chronic small vessel ischemia. There is no mass effect or midline shift. There is no hydrocephalus. There is no intracranial hemorrhage. The posterior fossa is without acute abnormality. The basilar cisterns are preserved. The soft tissues are without acute abnormality. No acute osseous abnormality is identified. IMPRESSION: Stable chronic changes without acute intracranial abnormality. Reviewed, Interpreted and Dictated by Aleshia Shrestha MD Transcribed by Ruth Coleman Authenticated and [facility]
== END 2024-10-01 23:59 | disposition home or self-care (01) ==
LOC: RAD 13:54
PROVIDERS: PCP Nurse Practitioner; Visit Provider Nurse Practitioner
DX: R41.3 Other amnesia (principal)
CPT/HCPCS: 70450